=== PATIENT | male | born 1950 ===

== ENCOUNTER 2022-05-02 10:42 | Day surgery (SDC) | payer MEDICARE, OTHER ==
[~2022-05-02] VITALS: Ht 182.9 cm; Wt 79.4 kg
[2022-05-02 13:19] VITALS: BP 145/80; PULSE 73; TEMP 97.4
[2022-05-02] MEDS ORDERED: DUPIXENT300 MG/2 M SQ (13:45)
[2022-05-02] MEDS ORDERED: ZYLOPRIM 100MG100 MG PO (13:46)
[2022-05-02] MEDS ORDERED: ZOCOR 40MG40 MG PO (13:46)
[2022-05-02] MEDS ORDERED: MASON NATURAL1200 MG PO (13:46)
[2022-05-02] MEDS ORDERED: XANAX 0.5MG0.5 MG PO (13:46)
[2022-05-02] MEDS ORDERED: SUDAFED 12 HOU120 MG PO (13:47)
[2022-05-02] MEDS ORDERED: ZYRTEC 10MG10 MG PO (13:47)
[2022-05-02] MEDS ORDERED: MUCUS RELIEF400 M1 PO (13:48)
[2022-05-02] MEDS ORDERED: CIALIS20 MG PO (13:48)
[2022-05-02] MEDS ORDERED: OTEZLA PO (13:48)
[2022-05-02 17:24] VITALS: TEMP 97
[2022-05-02 17:45] VITALS: BP 163/81; PULSE 68
--- NOTE | 2022-05-02 17:56 | NUR ---
Pt recently arrived to the floor from [facility]. He is alert and oriented although slightly whoozy from anesthesia. Pt was able to ambulate to the restroom, but was unable to void. Assisted pt to his bed, was a little unsteady on his feet. Pts is at bedside. Educated on post op care and criteria for going home. Gave him some jello, applesauce and water. Incision to his right cheek is well approximated with sutures intact. Gauze to under his chin is CDI
[2022-05-02 18:00] VITALS: BP 161/84; PULSE 69
[2022-05-02 18:15] VITALS: BP 154/77; PULSE 69
[2022-05-02 18:30] VITALS: BP 167/79; PULSE 65
--- NOTE | 2022-05-02 18:32 | NUR ---
Pt voided without difficulty and was steady on his feet getting to and from the restroom. Pt has tolerated jello, applesauce and juice. Pt ready for discharge. Incision remains well approximated and gauze to incision under chin is CDI
--- NOTE | 2022-05-02 18:52 | NUR ---
Reviewed discharge instructions with pt and his . Pt did repeat himself multiple times asking same questions. did verbalize understandin and did state prior to his arrival to the floor that he asks a lot of questions. Educated to call [facility] office tomorrow to schedule post op appointment. All questions answered. Report given to [facility] shift lead to discharge pt
--- NOTE | 2022-05-02 19:24 | NUR ---
PATIENT MET DISCHARGE CRITERIA. PATIETN DENIES NAUSEA, VOMITING. PATIENT ABLE TO AMBULATE INDEPENDENTLY WITH NO ISSUES. DRESSINGS CLEAN DRY AND INTACT. VISIBLE SUTURES INTACT. PATIENT IV DISCONTINUED. PATIENT ESCORTED OUT BY THIS NURSE AND .
== END 2022-05-02 19:24 | disposition home or self-care (01) ==
LOC: SDCO 10:42 → SURG 17:45 → SDCO 19:24
DX: L57.0 Actinic keratosis (principal)
CPT/HCPCS: OP; A9520; J0690; J1100; J2405; J2704; J3010; J7120